=== PATIENT | male | born 2000 | race Caucasian/White ===

== ENCOUNTER 2021-06-18 12:31 | Observation (INO) | payer BC ==
[~2021-06-18] VITALS: Wt 100.0 kg
[2021-06-18] VITALS (26 sets, daily range): BP systolic 120–140; BP diastolic 68–91; PULSE 89–108; TEMP 98.8
[2021-06-18] MEDS ORDERED: DESYREL 50MG50 MG PO (12:52)
[2021-06-18] MEDS ORDERED: WELLBUTRIN XL300 M1 PO (12:52)
[2021-06-18] MEDS ORDERED: LEXAPRO 10MG10 MG PO (12:53)
[2021-06-18] MEDS ORDERED: SEROQUEL 200MG200 MG PO (12:53)
[2021-06-18 13:10] LABS: BASO % 0.5 % (0.0-2.0); EOS # 0.2 K/mm3 (0.0-0.7); EOS % 2.5 % (0-4.0); GRAN # 4.2 K/mm3 (1.4-6.5); GRAN % 54.9 % (42.2-75.2); HEMATOCRIT 42.7 % (36.0-47.0); HEMOGLOBIN 14.8 g/dl (12.5-16.1); LYMPH # 2.6 K/mm3 (1.2-3.4); LYMPH % 33.6 % (20.0-51.0); MEAN CELL VOLUME 84 fl (80.0-95.0); MEAN CORPUSCULAR HEMOGLOBIN 29 pg (26.0-32.0); MEAN CORPUSCULAR HGB CONC 35 g/dl (33.0-37.0); MEAN PLATELET VOLUME 10.4 fl (7.4-10.4); MONO # 0.6 K/mm3 (0.1-0.6); MONO % 8.2 % (1.7-9.3); PLATELET COUNT 222 K/mm3 (130-400); RED BLOOD COUNT 5.07 M/mm3 (4.20-5.60); REDCELL DISTRIBUTION WIDTH-CV 12.2 % (11.5-14.5)
[2021-06-18 13:26] LABS: ALANINE AMINOTRANSFERASE 65 U/L (0-55); ALBUMIN 4.4 gm/dL (3.5-5.0); ALKALINE PHOSPHATASE 99 U/L (40-150); ANION GAP 9 mmol/L (7-16); AST,SGOT 41 U/L (5-34); BILIRUBIN,TOTAL 0.5 mg/dL (0.2-1.2); BLOOD UREA NITROGEN 16 mg/dL (8-21); CALCIUM 9.7 mg/dL (8.4-10.2); CARBON DIOXIDE 23 mmol/L (22-29); CHLORIDE 109 mmol/L (98-107); CREATININE, serum 1.04 mg/dL (0.72-1.25); GLUCOSE 108 mg/dL (70-99); POTASSIUM 3.6 mmol/L (3.5-4.5); SODIUM 141 mmol/L (136-145)
[2021-06-18 13:27] LABS: ACETAMINOPHEN < 1.0 ug/mL (10-30); ALCOHOL(ethanol),MEDICAL < 10 mg/dL (0-10); SALICYLATE < 5.0 mg/dL (15.0-30.0)
[2021-06-18 14:13] LABS: COLLECTION METHOD CLEAN CATCH
[2021-06-18 14:19] LABS: PH 6 (5-8); SQUAMOUS EPITHELIAL None Seen /hpf; URINE APPEARANCE Clear; URINE BACTERIA None Seen /hpf; URINE BILIRUBIN Negative (NEGATIVE); URINE BLOOD Negative (NEGATIVE); URINE COLOR Yellow; URINE GLUCOSE Negative (NEGATIVE); URINE KETONE Negative (NEGATIVE); URINE LEUKOCYTE ESTERASE Negative (NEGATIVE); URINE NITRATE Negative (NEGATIVE); URINE PROTEIN(semi-quant) Negative (NEGATIVE); URINE RBC None Seen /hpf; URINE UROBILINOGEN Negative (NEGATIVE)
[2021-06-18 14:29] LABS: TRICYCLIC ANTIDEPRESS URINE NEGATIVE
--- NOTE | 2021-06-18 20:30 | NUR ---
Patient to medical room 313, accompanied by mother Clary at this time. Patient is alert and oriented with mild tremor in chest and upper extremities. Vital signs stable with tachy HR at 95 bpm. Seizure precautions initiated. Poison control updated on patient's status. Mother will remain at bedside overnight; she has been granted permission from [facility]. Patient is in no pain and eats a dinner tray. Call light in reach and Q15 checks initiated.
[2021-06-18 21:49] LABS: HEMATOCRIT 41.4 % (36.0-47.0); HEMOGLOBIN 14.5 g/dl (12.5-16.1); MEAN CELL VOLUME 84 fl (80.0-95.0); MEAN CORPUSCULAR HEMOGLOBIN 29 pg (26.0-32.0); MEAN CORPUSCULAR HGB CONC 35 g/dl (33.0-37.0); MEAN PLATELET VOLUME 10.3 fl (7.4-10.4); PLATELET COUNT 231 K/mm3 (130-400); RED BLOOD COUNT 4.96 M/mm3 (4.20-5.60); REDCELL DISTRIBUTION WIDTH-CV 12.2 % (11.5-14.5)
[2021-06-18 22:06] LABS: ALBUMIN 4.3 gm/dL (3.5-5.0); BILIRUBIN,TOTAL 0.5 mg/dL (0.2-1.2); CREATININE, serum 1.11 mg/dL (0.72-1.25); POTASSIUM 3.8 mmol/L (3.5-4.5); TOTAL PROTEIN 6.9 gm/dL (6.2-8.1)
[2021-06-19] VITALS (29 sets, daily range): BP systolic 101–128; BP diastolic 20–71; PULSE 68–99; TEMP 97.7–98.1
--- NOTE | 2021-06-19 06:12 | NUR ---
Patient has had an uneventful night. He has slept most of the night with mother at bedside. Vitals have remained stable.
[2021-06-19 06:26] LABS: HEMATOCRIT 40.3 % (36.0-47.0); HEMOGLOBIN 13.8 g/dl (12.5-16.1); MEAN CELL VOLUME 84 fl (80.0-95.0); MEAN CORPUSCULAR HEMOGLOBIN 29 pg (26.0-32.0); MEAN CORPUSCULAR HGB CONC 34 g/dl (33.0-37.0); MEAN PLATELET VOLUME 10.3 fl (7.4-10.4); PLATELET COUNT 208 K/mm3 (130-400); REDCELL DISTRIBUTION WIDTH-CV 12.3 % (11.5-14.5)
[2021-06-19 06:45] LABS: BILIRUBIN,TOTAL 0.5 mg/dL (0.2-1.2); CALCIUM 9.8 mg/dL (8.4-10.2); CREATININE, serum 1.03 mg/dL (0.72-1.25); MAGNESIUM 1.9 mg/dL (1.7-2.2); POTASSIUM 3.7 mmol/L (3.5-4.5); TOTAL PROTEIN 6.3 gm/dL (6.2-8.1)
--- NOTE | 2021-06-19 09:36 | NUR ---
The PA notified SW that the patient has been medically cleared and inpatient psych is being recommended. The patient is agreeable to this. TRICIA contacted and faxed the patient's records to [facility] for them to screen the patient and placement.
--- NOTE | 2021-06-19 10:55 | NUR ---
Assessment completed, alert/oriented, vital signs stable, denies pain/ or discomfort, no tremors or neuro deficits noted, no seizure reported overnight from nursing or his mother whome stayed in the room, labs/ LFTs improved, he is taking PO intake without any N/v , Medically being clear and [facility] is doing a Virtual screen over the tablet at this time, will continue to monitor
--- NOTE | 2021-06-19 14:21 | NUR ---
TRICIA met with the patient and his mother, Clary (ph#[phone]), to update them on the process for [facility]. The patient and Clary verbalized understanding. The patient is a student at [employer] and he was interested in SW notifying [employer] Office of Student Life of his admission. TRICIA notified [employer]'s Office of Student Life. Clary reports that they plan on having the patient come back home with them after his inpatient psych stay. [facility] then collaborated with the patient's RN, Shakeel, for the Zoom meeting. The patient was screened by [facility]. [facility] is now working on finding inpatient psych treatment. Awaiting placement.
--- NOTE | 2021-06-19 15:41 | NUR ---
[facility] in [place] accepted the patient. [employer] was notified for secure transport. [facility] was contacted and they will tentatively be able to transport in a couple of hours. The patient's RN notified the patient, his mother, and the PA. TRICIA then followed up with the patient and his mother and presented the Transfer Consent Form. The patient signed the form. His mother asked about visitation at the facility. TRICIA contacted intake at [facility]. The stock checkerer reports that they are not allowing any visitors at this time. They are only doing Zoom meetings. SW updated the patient and his mother. The patient is to discharge today, 06/19, to [facility] in [place] for inpatient psych. TRICIA faxed the patient's orders to [facility]. No additional needs at this time.
--- NOTE | 2021-06-19 17:22 | NUR ---
[facility]is [facility], I have called and given report to receiving nursing staff at [facility], we have set up transportation with [facility], mother present at this time, patient is a voluntary transfer/admitt, IV and tele removed, his personal belongings have been returned to him
== END 2021-06-19 17:38 ==
LOC: COL.ER 12:31 → MEDICAL 15:47
PROVIDERS: Emergency Medicine; Physician Assistant; ADMIT Family Medicine
DX: T43.292A Poisoning by other antidepressants, intentional self-harm, initial encounter (principal); T43.212A Poisoning by selective serotonin and norepinephrine reuptake inhibitors, intentional self-harm, initial encounter; F41.1 Generalized anxiety disorder; F33.8 Other recurrent depressive disorders; R74.01 Elevation of levels of liver transaminase levels; Z91.51 Personal history of suicidal behavior; Z79.899 Other long term (current) drug therapy
CPT/HCPCS: 99223-AI; 99232-AI; G0378; J7030